=== PATIENT | female | born 1995 | race African-American/Black ===

== ENCOUNTER 2022-08-24 01:42 | Inpatient (IN) | payer BC, MEDICAID, OTHER ==
[~2022-08-24] VITALS: Ht 167.6 cm; Wt 88.2 kg
[2022-08-24] MEDS ORDERED: DIPHENHYDRAMINE 50MG/ML VIAL IV ONE (02:00)
[2022-08-24] MEDS ORDERED: SODIUM CHLORIDE 0.9% 1,000 ML IV SCH (02:00)
[2022-08-24] MEDS ORDERED: DEXAMETHASONE 10 MG/ML VIAL IV ONE (02:00)
[2022-08-24] MEDS ORDERED: FAMOTIDINE 20MG/2ML VIAL IV ONE (02:00)
[2022-08-24] MEDS ORDERED: EPINEPHRINE 1:1000 1 MG/ML AMP IM ONE (02:00)
[2022-08-24 02:18] LABS: BASOPHILS % 0.5 % (0.0-2.0); EOSINOPHILS % 2.4 % (0.0-5.0); HEMATOCRIT. 44.6 % (36.0-48.0); HEMOGLOBIN. 14.5 g/dL (12.0-16.0); LYMPHOCYTES % 41.4 % (20.0-50.0); MEAN CORPUSCULAR HEMOGLOBIN 27.4 pg (28.0-32.0); MEAN CORPUSCULAR VOLUME 84.3 fL (81.0-99.0); MEAN PLATELET VOLUME 9.3 fl (7.4-10.4); MONOCYTES % 2.8 % (2.0-8.0); NEUTROPHILS % 52.9 % (40.0-76.0); PLATELET 320 x1000/uL (130-400); RED CELL DISTRIBUTION WIDTH 13.9 % (11.6-14.6)
[2022-08-24 02:27] LABS: CHLORIDE 106 mEq/L (98-107)
[2022-08-24] MEDS ORDERED: ACETAMINOPHEN 325MG TABLET PO PRN (11:15)
[2022-08-24 14:15] VITALS: BP 137/73
[2022-08-24 15:10] VITALS: BP 137/73
[2022-08-24] MEDS: METHYLPREDNISOLONE SOD SUCC 40 MG/ML VIAL IV SCH ×2 (15:50→21:06)
[2022-08-24 16:00] VITALS: BP 123/79
[2022-08-24] MEDS: DIPHENHYDRAMINE 50MG CAPSULE PO SCH ×2 (18:37→23:29)
[2022-08-24 20:00] VITALS: BP 130/79
[2022-08-24] MEDS ORDERED: POTASSIUM CHLORIDE 20MEQ/PACKET PO NR (21:00)
[2022-08-24] MEDS: FAMOTIDINE 20MG/2ML VIAL IV SCH (21:06)
[2022-08-25] VITALS: BP 129/73
[2022-08-25 04:00] VITALS: BP 140/81
[2022-08-25] MEDS: DIPHENHYDRAMINE 50MG CAPSULE PO SCH (05:08)
[2022-08-25] MEDS: METHYLPREDNISOLONE SOD SUCC 40 MG/ML VIAL IV SCH ×2 (05:08→14:28)
[2022-08-25 08:00] VITALS: BP 149/68
[2022-08-25] MEDS: FAMOTIDINE 20MG/2ML VIAL IV SCH (11:00)
[2022-08-25 12:00] VITALS: BP 123/86
[2022-08-25] MEDS ORDERED: P20 MT (12:14)
[2022-08-25 12:22] VITALS: BP 123/86
== END 2022-08-25 15:14 | disposition home or self-care (01) | DRG 811 ==
LOC: ER 01:42 → 7WST 04:24 → EDBEDREQ 04:26 → EDBEDREQTM 04:26 → EDBEDREQSVC 04:26
PROVIDERS: ADMIT Internal Medicine; ATTEND Internal Medicine
DX: T78.2XXA Anaphylactic shock, unspecified, initial encounter (principal); J96.00 Acute respiratory failure, unspecified whether with hypoxia or hypercapnia; T78.1XXA Other adverse food reactions, not elsewhere classified, initial encounter; E66.9 Obesity, unspecified; E87.6 Hypokalemia; I48.91 Unspecified atrial fibrillation; Z91.010 Allergy to peanuts; Z68.31 Body mass index [BMI] 31.0-31.9, adult; X58.XXXA Exposure to other specified factors, initial encounter
CPT/HCPCS: 36415; 71045; 80053; 82962; 84484; 85025; 93005; 99291; J1100; J1200; J2920; J3490; Q0163